=== PATIENT | female | born 1975 | race African-American/Black ===

== ENCOUNTER 2021-08-23 12:29 | Emergency (ER) | payer BC ==
[~2021-08-23] VITALS: Ht 162.6 cm; Wt 73.0 kg
[2021-08-23] MEDS ORDERED: LEVO75TA PO (12:44)
[2021-08-23] MEDS ORDERED: ACETAMINOPHEN 325MG TABLET PO ONE (15:30)
[2021-08-23 16:22] VITALS: BP 123/77
== END 2021-08-23 16:26 | disposition home or self-care (01) ==
LOC: ER 12:29
DX: B34.9 Viral infection, unspecified (principal); M79.10 Myalgia, unspecified site; E03.9 Hypothyroidism, unspecified; Z98.84 Bariatric surgery status; Z20.822 Contact with and (suspected) exposure to COVID-19; Z98.890 Other specified postprocedural states
CPT/HCPCS: 87426; 87804; 99283